=== PATIENT | female | born 1995 | race African-American/Black ===

== ENCOUNTER 2018-06-13 11:01 | Emergency (ER) | payer SELFPAY ==
[~2018-06-13] VITALS: Ht 152.4 cm; Wt 47.6 kg
[2018-06-13 11:15] VITALS: BP 136/95
== END 2018-06-13 14:29 | disposition home or self-care (01) ==
LOC: ED 11:01
DX: S43.102A Unspecified dislocation of left acromioclavicular joint, initial encounter (principal); J45.909 Unspecified asthma, uncomplicated; W22.8XXA Striking against or struck by other objects, initial encounter; Y93.89 Activity, other specified; Y92.89 Other specified places as the place of occurrence of the external cause; Y99.8 Other external cause status
CPT/HCPCS: J1885